=== PATIENT | female | born 1965 | race Caucasian/White ===

== ENCOUNTER 2017-06-06 08:49 | Emergency (ER) | payer BC ==
[~2017-06-06] VITALS: Ht 162.6 cm; Wt 100.4 kg
[~2017-06-06 08:49] MED LIST: ADULT LOW DOSE81 M1 PO; ASPIRIN81 M2 PO; BISOPROLOL FUMAR5 MG PO; BYSTOLIC20 MG PO; CORGARD20 MG PO; CORICIDIN HBP1 EAC2 PO; EXCEDRIN MIGRA1 EAC3 PO; FIORICET,ESG1 TABLET PO; IBUPROFEN400 MG PO; MUCINEX DM ER1 EACH PO; NADOLOL40 MG PO; PROMETHAZINE HC25 M1 PO; SOMA PO; TAMIFLU75 MG PO; TOPAMAX100 MG PO; TOPAMAX200 MG PO; TRAMADOL PO; ZOFRAN4 MG PO
[2017-06-06] MEDS ORDERED: ZYRTEC10 M3 PO (09:03)
[2017-06-06] MEDS ORDERED: LEXAPRO10 MG PO (09:04)
[2017-06-06] MEDS ORDERED: NORCO 5/3251 TABLET PO (10:35)
[2017-06-06 10:50] VITALS: BP 173/78
== END 2017-06-06 10:51 | disposition home or self-care (01) ==
LOC: EME 08:49
DX: S90.02XA Contusion of left ankle, initial encounter (principal); X58.XXXA Exposure to other specified factors, initial encounter; M77.32 Calcaneal spur, left foot; I10 Essential (primary) hypertension
CPT/HCPCS: 73610; 99281; 99284

== ENCOUNTER 2017-06-11 03:45 | Inpatient (IN) | payer BC ==
[~2017-06-11] VITALS: Ht 162.6 cm; Wt 100.2 kg
[~2017-06-11 03:45] MED LIST changes: +LEXAPRO10 MG PO; +NORCO 5/3251 TABLET PO; +ZYRTEC10 M3 PO
[2017-06-11 04:31] LABS: APPEARANCE CLOUDY ((CLEAR)); BILIRUBIN NEGATIVE; BLOOD MODERATE; COLOR YELLOW ((YELLOW)); GLUCOSE (STRIP) NEGATIVE; KETONES NEGATIVE; LEUKOCYTES TRACE; NITRITE NEGATIVE; PROTEIN (STRIP) >=500; SPECIFIC GRAVITY 1.014 (1.000-1.030); UROBILINOGEN 0.2 MG/DL (0.2-1.0)
[2017-06-11 04:35] LABS: BASOPHIL (%) 0.6 % (0-1); BASOPHIL COUNT 0.1 K/uL (0-0.1); EOSINOPHIL (%) 1.7 % (0-5); EOSINOPHIL COUNT 0.3 K/uL (0-0.3); HEMATOCRIT 46.4 % (36.0-46.0); HEMOGLOBIN 15.7 G/DL (11.9-15.5); IMMATURE GRANULOCYTE (%) 0.7 % (0.0-0.7); LYMPHOCYTE (%) 9.9 % (15-42); LYMPHOCYTE COUNT 1.9 K/uL (1.0-2.8); MCH 29.1 PG (29.0-34.0); MCHC 33.8 G/DL (30.0-36.0); MCV 85.9 FL (83-99); MONOCYTE COUNT 1.6 K/uL (0-0.8); NEUTROPHIL (%) 79.1 % (45-76); NEUTROPHIL COUNT 15.4 K/uL (1.8-6.4); PLATELET COUNT 290 K/uL (156-360); RBC DIS.WIDTH-CV 12.7 % (11.8-14.6); RBC DIS.WIDTH-SD 39.4 % (39-53); WHITE BLOOD COUNT 19.5 K/uL (4.1-10.2)
[2017-06-11 04:35] LABS: BACTERIA RARE /HPF; EPITHELIAL CELLS 1+ /HPF; MUCUS NONE SEEN /LPF; RED BLOOD CELLS 30-40 /HPF (0-5); UCUL ADDED? YES
[2017-06-11 04:43] LABS: ALBUMIN 3.7 g/dL (3.2-4.8); CHLORIDE 107 mEq/L (99-109); POTASSIUM 4.7 mEq/L (3.7-5.4); SODIUM 140 mEq/L (136-147)
[2017-06-11 04:45] LABS: GLUCOSE 157 mg/dL (70-99); TOTAL PROTEIN 7.4 g/dL (6.4-8.3)
[2017-06-11 04:47] LABS: TOTAL BILIRUBIN 0.6 mg/dL (0.0-1.0)
[2017-06-11 04:49] LABS: ALKALINE PHOSPHATASE 92 IU/L (3-129); GFR ESTIMATE (CALCULATED) > 59 mL/min/
[2017-06-11 04:50] LABS: UREA NITROGEN (BUN) 16 mg/dL (9-23)
[2017-06-11 04:51] LABS: AST (GOT) 34 IU/L (2-34)
[2017-06-11 04:52] LABS: ALT (GPT) 42 IU/L (3-49)
[2017-06-11] MEDS ORDERED: TRAMADOL HCL50 MG PO (07:54)
[2017-06-11] MEDS ORDERED: ZANTAC150 MG PO (08:21)
[2017-06-11] MEDS ORDERED: FLONASE16 G1 BOTH NARES (08:22)
[2017-06-11] MEDS ORDERED: BENTYL10 MG PO (08:22)
[2017-06-11] MEDS ORDERED: PROAIR HFA8.5 GM IH (08:23)
[2017-06-11] MEDS ORDERED: DICLOFENAC SOD100 MG PO (08:23)
[2017-06-11 15:01] VITALS: BP 130/68
[2017-06-11 23:17] VITALS: BP 119/64
[2017-06-12 03:35] VITALS: BP 137/70
[2017-06-12 07:11] LABS: BASOPHIL (%) 0.8 % (0-1); BASOPHIL COUNT 0.1 K/uL (0-0.1); EOSINOPHIL (%) 3.1 % (0-5); EOSINOPHIL COUNT 0.3 K/uL (0-0.3); HEMATOCRIT 39.2 % (36.0-46.0); IMMATURE GRANULOCYTE (%) 0.5 % (0.0-0.7); LYMPHOCYTE (%) 31.3 % (15-42); LYMPHOCYTE COUNT 3.3 K/uL (1.0-2.8); MCHC 31.9 G/DL (30.0-36.0); MCV 87.7 FL (83-99); MONOCYTE COUNT 0.8 K/uL (0-0.8); NEUTROPHIL (%) 56.3 % (45-76); NEUTROPHIL COUNT 5.9 K/uL (1.8-6.4); PLATELET COUNT 221 K/uL (156-360); RBC DIS.WIDTH-SD 41.7 % (39-53); RED BLOOD COUNT 4.47 M/uL (3.80-5.20); WHITE BLOOD COUNT 10.5 K/uL (4.1-10.2)
[2017-06-12 07:17] LABS: HEMOGLOBIN 12.5 G/DL (11.9-15.5)
[2017-06-12 07:36] LABS: CHLORIDE 111 MEQ/L (99-109); CREATININE 0.8 MG/DL (0.6-1.3); GFR ESTIMATE (CALCULATED) > 59 mL/min/; GLUCOSE 110 mg/dL (70-99); POTASSIUM 4.4 MEQ/L (3.7-5.4); SODIUM 141 MEQ/L (136-147); UREA NITROGEN (BUN) 13 mg/dL (9-23)
[2017-06-12 08:07] VITALS: BP 154/70
[2017-06-12 10:54] VITALS: BP 192/84
[2017-06-12 14:05] VITALS: BP 169/96
[2017-06-12 18:21] VITALS: BP 161/80
[2017-06-12 19:00] VITALS: BP 145/78
[2017-06-13] VITALS: BP 127/60
[2017-06-13 03:43] VITALS: BP 135/74
[2017-06-13 06:44] LABS: BASOPHIL (%) 0.5 % (0-1); BASOPHIL COUNT 0.1 K/uL (0-0.1); EOSINOPHIL (%) 3.3 % (0-5); EOSINOPHIL COUNT 0.3 K/uL (0-0.3); HEMATOCRIT 37.4 % (36.0-46.0); HEMOGLOBIN 12.3 G/DL (11.9-15.5); IMMATURE GRANULOCYTE (%) 0.4 % (0.0-0.7); LYMPHOCYTE (%) 29.1 % (15-42); LYMPHOCYTE COUNT 2.7 K/uL (1.0-2.8); MCHC 32.9 G/DL (30.0-36.0); MCV 88.2 FL (83-99); MONOCYTE (%) 9.4 % (3-12); MONOCYTE COUNT 0.9 K/uL (0-0.8); NEUTROPHIL (%) 57.3 % (45-76); NEUTROPHIL COUNT 5.3 K/uL (1.8-6.4); PLATELET COUNT 207 K/uL (156-360); RBC DIS.WIDTH-CV 12.9 % (11.8-14.6); RBC DIS.WIDTH-SD 41.7 % (39-53); RED BLOOD COUNT 4.24 M/uL (3.80-5.20); WHITE BLOOD COUNT 9.2 K/uL (4.1-10.2)
[2017-06-13 07:14] LABS: CHLORIDE 108 MEQ/L (99-109); CREATININE 0.8 MG/DL (0.6-1.3); GFR ESTIMATE (CALCULATED) > 59 mL/min/; GLUCOSE 112 mg/dL (70-99); POTASSIUM 4.4 MEQ/L (3.7-5.4); SODIUM 142 MEQ/L (136-147); UREA NITROGEN (BUN) 13 mg/dL (9-23)
[2017-06-13 08:10] VITALS: BP 146/71
[2017-06-13 12:25] VITALS: BP 143/65
[2017-06-13] MEDS ORDERED: TAMSULOSIN HCL0.4 MG PO (13:58)
[2017-06-13] MEDS ORDERED: DITROPAN5 MG PO (13:58)
[2017-06-13] MEDS ORDERED: CEFTIN500 MG PO (13:59)
== END 2017-06-13 15:04 | disposition home or self-care (01) | DRG 670 ==
LOC: EME 03:45 → EDOF 05:50 → 2EAST 05:50 → ENRESERV 05:51 → 2EAST 14:47
PROVIDERS: Emergency Medicine; Hospitalist
DX: N13.6 Pyonephrosis (principal); I10 Essential (primary) hypertension; N99.3 Prolapse of vaginal vault after hysterectomy; J30.2 Other seasonal allergic rhinitis; G43.909 Migraine, unspecified, not intractable, without status migrainosus; Z87.440 Personal history of urinary (tract) infections; Z86.73 Personal history of transient ischemic attack (TIA), and cerebral infarction without residual deficits; Z90.49 Acquired absence of other specified parts of digestive tract
CPT/HCPCS: 71046; 74176; 74420; 80048; 80053; 81003; 82365 90; 85025; 87086; 87502; C2625; J0330; J0696; J1170; J1885; J2250; J2270; J2405; J2765; J3010; J7030; S0028

== ENCOUNTER 2017-07-20 08:17 | Emergency (ER) | payer BC ==
[~2017-07-20] VITALS: Ht 162.6 cm; Wt 98.7 kg
[~2017-07-20 08:17] MED LIST changes: +BENTYL10 MG PO; +CEFTIN500 MG PO; +DICLOFENAC SOD100 MG PO; +DITROPAN5 MG PO; +FLONASE16 G1 BOTH NARES; +PROAIR HFA8.5 GM IH; +TAMSULOSIN HCL0.4 MG PO; +TRAMADOL HCL50 MG PO; +ZANTAC150 MG PO
[2017-07-20 08:58] LABS: BASOPHIL (%) 1.1 % (0-1); BASOPHIL COUNT 0.1 K/uL (0-0.1); EOSINOPHIL (%) 3.7 % (0-5); EOSINOPHIL COUNT 0.3 K/uL (0-0.3); HEMATOCRIT 43.8 % (36.0-46.0); HEMOGLOBIN 14.8 G/DL (11.9-15.5); IMMATURE GRANULOCYTE (%) 0.5 % (0.0-0.7); LYMPHOCYTE COUNT 2.7 K/uL (1.0-2.8); MCH 28.7 PG (29.0-34.0); MCHC 33.8 G/DL (30.0-36.0); MCV 84.9 FL (83-99); MONOCYTE (%) 6.6 % (3-12); MONOCYTE COUNT 0.6 K/uL (0-0.8); NEUTROPHIL (%) 59.1 % (45-76); NEUTROPHIL COUNT 5.5 K/uL (1.8-6.4); PLATELET COUNT 267 K/uL (156-360); RBC DIS.WIDTH-CV 12.7 % (11.8-14.6); RBC DIS.WIDTH-SD 38.8 % (39-53); RED BLOOD COUNT 5.16 M/uL (3.80-5.20); WHITE BLOOD COUNT 9.3 K/uL (4.1-10.2)
[2017-07-20 09:05] LABS: CHLORIDE 109 mEq/L (99-109); POTASSIUM 4.6 mEq/L (3.7-5.4); SODIUM 139 mEq/L (136-147)
[2017-07-20 09:06] LABS: GLUCOSE 108 mg/dL (70-99)
[2017-07-20 09:10] LABS: CREATININE 0.7 mg/dL (0.6-1.3); GFR ESTIMATE (CALCULATED) > 59 mL/min/
[2017-07-20 09:11] LABS: UREA NITROGEN (BUN) 13 mg/dL (9-23)
[2017-07-20] MEDS ORDERED: AUGMENTIN875 MG PO (10:30)
[2017-07-20 11:00] VITALS: BP 145/82
== END 2017-07-20 11:23 | disposition home or self-care (01) ==
LOC: EME 08:17
PROVIDERS: Emergency Medicine
DX: R42 Dizziness and giddiness (principal); I10 Essential (primary) hypertension; I88.9 Nonspecific lymphadenitis, unspecified; J45.909 Unspecified asthma, uncomplicated; Z86.73 Personal history of transient ischemic attack (TIA), and cerebral infarction without residual deficits; K21.9 Gastro-esophageal reflux disease without esophagitis; R56.9 Unspecified convulsions; Z88.5 Allergy status to narcotic agent; Z88.2 Allergy status to sulfonamides
CPT/HCPCS: 70450; 71045; 80048; 85025; 93005; 99281; 99285

== ENCOUNTER 2017-09-15 08:12 | Emergency (ER) | payer BC ==
[~2017-09-15] VITALS: Ht 162.6 cm; Wt 98.7 kg
[~2017-09-15 08:12] MED LIST changes: +AUGMENTIN875 MG PO
[2017-09-15 08:43] LABS: HEMATOCRIT 47.5 % (36.0-46.0); HEMOGLOBIN 16.2 G/DL (11.9-15.5); MCH 28.8 PG (29.0-34.0); MCHC 34.1 G/DL (30.0-36.0); MCV 84.5 FL (83-99); PLATELET COUNT 232 K/uL (156-360); RBC DIS.WIDTH-CV 13.1 % (11.8-14.6); RBC DIS.WIDTH-SD 40.4 % (39-53); RED BLOOD COUNT 5.62 M/uL (3.80-5.20); WHITE BLOOD COUNT 12.7 K/uL (4.1-10.2)
[2017-09-15 09:13] LABS: ALBUMIN 3.7 g/dL (3.2-4.8); CHLORIDE 108 mEq/L (99-109); POTASSIUM 4.7 mEq/L (3.7-5.4); SODIUM 142 mEq/L (136-147)
[2017-09-15 09:15] LABS: GLUCOSE 130 mg/dL (70-99)
[2017-09-15 09:16] LABS: TOTAL PROTEIN 7.2 g/dL (6.4-8.3)
[2017-09-15 09:18] LABS: TOTAL BILIRUBIN 0.3 mg/dL (0.0-1.0)
[2017-09-15 09:19] LABS: ALKALINE PHOSPHATASE 93 IU/L (3-129); CREATININE 0.7 mg/dL (0.6-1.3); GFR ESTIMATE (CALCULATED) > 59 mL/min/
[2017-09-15 09:20] LABS: UREA NITROGEN (BUN) 10 mg/dL (9-23)
[2017-09-15 09:21] LABS: AST (GOT) 41 IU/L (2-34)
[2017-09-15 09:22] LABS: ALT (GPT) 45 IU/L (3-49)
[2017-09-15 09:30] LABS: QUANTITATIVE HCG < 4.0 MIU/ML
[2017-09-15 11:00] VITALS: BP 146/98
== END 2017-09-15 11:24 | disposition home or self-care (01) ==
LOC: EME 08:12
DX: I10 Essential (primary) hypertension (principal); R51 Headache; K21.9 Gastro-esophageal reflux disease without esophagitis; J45.909 Unspecified asthma, uncomplicated; F39 Unspecified mood [affective] disorder; Z79.891 Long term (current) use of opiate analgesic; Z87.442 Personal history of urinary calculi; Z86.73 Personal history of transient ischemic attack (TIA), and cerebral infarction without residual deficits; Z90.49 Acquired absence of other specified parts of digestive tract; Z88.5 Allergy status to narcotic agent; Z88.2 Allergy status to sulfonamides; Z88.8 Allergy status to other drugs, medicaments and biological substances
CPT/HCPCS: 70450; 80053; 84702; 85027; J1885; J2405